=== PATIENT | female | born 1960 | race Caucasian/White ===

== ENCOUNTER 2017-11-26 20:16 | Emergency (ER) | payer OTHER ==
[~2017-11-26] VITALS: Ht 175.3 cm; Wt 77.3 kg
[~2017-11-26 20:16] MED LIST: ASPI81 PO; MULT-1238 PO; PANT40TA25 PO; RISP2 PO
[2017-11-26 22:29] VITALS: BP 139/89
[2017-11-26] MEDS ORDERED: HYDROmorphone 2 MG/ML SYRINGE IM ONE (22:30)
== END 2017-11-26 23:25 | disposition home or self-care (01) ==
LOC: EMS 20:18
DX: G89.29 Other chronic pain (principal); M54.5 Low back pain; M54.2 Cervicalgia; M25.512 Pain in left shoulder; R03.0 Elevated blood-pressure reading, without diagnosis of hypertension; Z87.891 Personal history of nicotine dependence; Y08.89XA Assault by other specified means, initial encounter
CPT/HCPCS: 96372; 99283; J1170